=== PATIENT | male | born 2000 | race Caucasian/White ===

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

== ENCOUNTER 2023-01-22 08:23 | Emergency (ER) | payer BC, SELFPAY ==
--- NOTE | 2023-01-22 08:36 | ED.NAVMDI ---
HPI - Nausea/Vomiting/Diarrhea General Chief complaint: Nausea/Vomiting/Diarrhea Stated complaint: Wants a Doctor's Note History of Present Illness HPI Narrative: Patient presents requesting a work note. Patient states yesterday had nausea and vomiting with emesis x1. No fever no cough no shortness of breath no chest pain. Patient has no diarrhea no constipation no abdominal pain. Patient states he feels like ?a million bucks? today and just needs a note to go back to work tomorrow. Patient states he is eating and drinking normal now and all symptoms have resolved. Related Data Home Medications Medication Instructions Recorded Confirmed No Home Medications 01/22/23 01/22/23 Allergies Allergy/AdvReac Type Severity Reaction Status Date / Time Sulfa (Sulfonamide Allergy Intermediate Hives Verified 01/22/23 08:43 Antibiotics) Review of Systems Review of Systems: CONSTITUTIONAL: Denies fever, chills, or sweats. EYES: Denies visual changes, redness, or discharge. ENT: Denies rhinorrhea, congestion, sore throat, or otalgia. CARDIOVASCULAR: Denies chest pain, palpitations, or edema. RESPIRATORY: Denies cough or dyspnea. GASTROINTESTINAL: Denies abdominal pain, nausea, vomiting, or diarrhea. GENITOURINARY: Denies dysuria or hematuria. SKIN: Denies rash or itching. MUSCULOSKELETAL: Denies back pain, joint pain, or myalgia. NEUROLOGIC: Denies headache, numbness, or weakness. PSYCHIATRIC: Denies anxiety or depression. [facility] Comments At time of signature, agree with nursing past medical, surgical, social and family history. There is no relevant family history pertinent to the presenting complaint Exam Narrative: GENERAL: Well-appearing, well-nourished, and in no acute distress. HEAD: Normocephalic, atraumatic. EYES: PERRLA and EOMI. ENT: Nares clear, no rhinorrhea or epistaxis. Mucous membranes moist. NECK: Supple. CHEST: Clear to auscultation. No respiratory distress. HEART: Regular rate and rhythm. No murmur heard. Normal peripheral pulses. ABDOMEN: Soft, nontender, nondistended, normal active bowel sounds. EXTREMITIES: Normal range of motion. No edema. SKIN: Warm, dry, no rash. NEURO: No focal deficits. Alert and oriented x3. [place] Coma Scale Eye Opening: Spontaneous 4 [place] Coma Scale Motor: Obeys Commands 6 [place] Coma Scale Verbal: Oriented 5 [place] Coma Scale Total 15 Course Course Level of Care: Express Care Visit Discharge Plan Discharge Clinical Impression: Encounter to obtain excuse from work Patient Disposition: Home, Self-Care Condition: Stable Additional Instructions: Clear liquids for the next 8-10 hours, then advance to a bland diet as tolerated A bland diet can consist of--BRAT diet which is bananas, rice, applesauce, and toast Avoid fried, greasy, fatty, fried foods Avoid caffeine, nicotine, and alcohol Return to your regular diet in the next 3-4 days Medication as directed for nausea and vomiting. Sometimes ibuprofen/Aleve can cause increased stomach upset [id number] Imodium if develop diarrhea Follow-up with her PCP if continued problems or uncontrolled pain -If you have any worsening of symptoms or any other concerns please go to the ED immediately. Follow-up/Referrals: UNKNOWN,DOCTOR [Primary Care Provider] - Stand Alone Forms: Work/School Release IP
[2023-01-22 08:37] VITALS: BP 143/75; PULSE 103; RESP 16; TEMP 36.8; O2SAT 98
== END 2023-01-22 08:47 | disposition home or self-care (01) ==
PROVIDERS: Emergency Provider Nurse Practitioner Family
DX: R11.2 Nausea with vomiting, unspecified (principal)
CPT/HCPCS: 99211; G0463

== ENCOUNTER 2023-07-18 09:12 | Emergency (ER) | payer BC, SELFPAY ==
[2023-07-18 09:26] VITALS: BP 140/54; PULSE 98; RESP 18; TEMP 36.8; O2SAT 98
--- NOTE | 2023-07-18 09:35 | ED.DENTAL ---
HPI - Dental/Oral General Chief complaint: Dental/Oral Stated complaint: Pain on left side of face and left Ear Time Seen by Provider: 07/18/23 09:29 Source: patient Mode of arrival: ambulatory Limitations: no limitations History of Present Illness HPI Narrative: 23-year-old male presents with concern for pain to his left jaw near his ear. Reports he thinks it maybe is wisdom tooth. He denies runny nose, stuffy nose, drainage from the ear. Denies fever, headache, trouble swelling. Has tried Tylenol Complaint: tooth pain Related Data Allergies Allergy/AdvReac Type Severity Reaction Status Date / Time Sulfa (Sulfonamide Allergy Intermediate Hives Verified 01/22/23 08:43 Antibiotics) Review of Systems Review of Systems: CONSTITUTIONAL: Denies malaise, chills, sweats, or fever. EYES: Denies visual changes ENT: Denies rhinorrhea, congestion, sinus pain, otalgia or sore throat. Reports left lower dental pain CARDIOVASCULAR: Denies chest pain, palpitations RESPIRATORY: Denies cough or dyspnea. SKIN: Denies rash or itching. MUSCULOSKELETAL: Denies myalgia. NEUROLOGIC: Denies numbness, weakness, or headache. All systems reviewed & are unremarkable except as noted in HPI and below PMFSH Comments At time of signature, agree with nursing past medical, surgical, social and family history. There is no relevant family history pertinent to the presenting complaint Exam Narrative: GENERAL: Well-appearing, well-nourished, and in no acute distress. HEAD: Normocephalic, atraumatic. EYES: PERRLA, sclera clear ENT: Nares clear, turbinates pink, no rhinorrhea or epistaxis. Mucous membranes moist. TM pearly alan with sharp light reflex bilaterally; no tragal tenderness. Oropharynx without erythema or lesions. Tonsils not enlarged and without exudate. No missing teeth, broken teeth, visible caries. Left jaw tenderness NECK: Supple. No lymphadenopathy. CHEST: No respiratory distress. Speaks in full sentences. HEART: Regular rate and rhythm. SKIN: Warm, dry, no visible rash. NEURO: Alert and oriented x3. PSYCH: Normal mood and affect Course Course Emergency Course: Patient is aware of diagnosis, understands and agrees to treatment plan. Anticipatory guidance given. Patient agrees to follow-up as directed and is aware of reasons to seek care at the emergency department. Portions of this record may have been created with voice recognition software Level of Care: Express Care Visit Vital Signs Vital signs: Vital Signs Temperature 98.3 F 07/18/23 09:26 Pulse Rate 98 07/18/23 09:26 Respiratory Rate 18 07/18/23 09:26 Blood Pressure 140/54 L 07/18/23 09:26 Pulse Oximetry 98 07/18/23 09:26 Oxygen Delivery Room Air 07/18/23 09:26 Temperature 98.3 F 07/18/23 09:26 Pulse Rate 98 07/18/23 09:26 Respiratory Rate 18 07/18/23 09:26 Blood Pressure 140/54 L 07/18/23 09:26 Pulse Oximetry 98 07/18/23 09:26 Oxygen Delivery Room Air 07/18/23 09:26 Reviewed. MDM - Dental/Oral MDM Narrative Medical decision making narrative: Patients pain and complaint coupled with physical findings are consistant with dentalgia. There are no focal signs of space occupying lesions that are compromising to the airway; no dysphagia, odynophagia, dysphonia, or dyspnea. No uvular deviation or soft palate edema. Patient is non-toxic appearing. The floor of the mouth is soft with no signs of Singh's Angina; no induration below mandible, no neck pain. Patient is without trismus or drooling and able to swallow secretions. Patient is felt appropriate for discharge home with dental follow up. Differential Diagnosis Differential diagnosis: Likely gingival abscess, dental caries, toothache, dental abscess, fracture of tooth and aphthous ulcer Critical Care Time Critical Care Time Critical Care Time: No Discharge Plan Discharge Clinical Impression: Toothache Patient Disposition: Home, Self-Care
== END 2023-07-18 09:42 | disposition home or self-care (01) ==
PROVIDERS: Emergency Provider Nurse Practitioner
DX: K08.89 Other specified disorders of teeth and supporting structures (principal)
CPT/HCPCS: 99213; G0463

== ENCOUNTER 2024-03-10 15:39 | Emergency (ER) | payer BC, SELFPAY ==
--- NOTE | 2024-03-10 15:46 | ED.GENADULT ---
HPI - General Adult General Chief complaint: Unspecified Stated complaint: needs work note Time Seen by Provider: 03/10/24 15:40 History of Present Illness HPI narrative: 24 year old male presents the urgent care with complaints of nausea for the last 2 to 3 days. Patient states that he has not had any nausea or vomiting in the last 24 hours and is wanting to return to work. Patient believes that he just got sick off of something that he ate . Patient has been eating and drinking fine within the last 24 hours without any symptoms. Denies any diarrhea or abdominal pain. No other acute complaints. No acute distress noted. Patient aware of the plan of care. Related Data Allergies Allergy/AdvReac Type Severity Reaction Status Date / Time Sulfa (Sulfonamide Allergy Intermediate Hives Verified 01/22/23 08:43 Antibiotics) Review of Systems Review of Systems: CONSTITUTIONAL: Denies fever, chills, or sweats. EYES: Denies visual changes, redness, or discharge. ENT: Denies rhinorrhea, congestion, sore throat, or otalgia. CARDIOVASCULAR: Denies chest pain, palpitations, or edema. RESPIRATORY: Denies cough or dyspnea. GASTROINTESTINAL: Denies abdominal pain, nausea, vomiting, or diarrhea. GENITOURINARY: Denies dysuria or hematuria. SKIN: Denies rash or itching. MUSCULOSKELETAL: Denies back pain, joint pain, or myalgia. NEUROLOGIC: Denies headache, numbness, or weakness. PSYCHIATRIC: Denies anxiety or depression. PMFSH Comments At time of signature, agree with nursing past medical, surgical, social and family history. There is no relevant family history pertinent to the presenting complaint Exam Narrative: The patient is a well-developed, well-nourished in no acute distress. SKIN: Skin is warm and dry without erythema, swelling or exudate. There is good turgor. No tenting. HEAD: Atraumatic. Normocephalic. No temporal or scalp tenderness. EYES: Moist and bright. Sclera and conjunctivae normal. No discharge. PERRLA. Extraocular motions intact. Gross visual acuity intact. EARS: Pinna is normal shape and contour. Clear external auditory canals. TM pearly ramirez with good cone of light, no erythema or suppuration. Bilateral cerumen noted no gross hearing deficit. NOSE: pink, moist mucosa with good air movement. Clear rhinorrhea without nasal flaring. Septum midline. Mouth: moist mucous membranes. THROAT; mild erythema noted to posterior oropharynx with moderate postnasal drainage. Without exudate or ulceration.. Uvula midline. Normal movement of soft palate. NECK: Supple and nontender with full range of motion without discomfort. No meningeal signs. LUNGS: Equal and bilateral breath sounds without wheezes, rales or rhonchi. CHEST: The chest wall is without retractions or use of accessory muscles. HEART: Has a regular rate and rhythm without murmur, gallops, click or rub. ABDOMEN: Soft, nontender with positive active bowel sounds. No rebound tenderness. EXTREMITIES: Without cyanosis, clubbing or edema. Equal 2+ distal pulses and 2 second capillary refill noted. NEUROLOGIC: alert, active, . The patient moves all extremities with normal muscle strength. Normal muscle tone is noted. Normal coordination is noted. NO focal neurological findings noted. Course Course Level of Care: Express Care Visit Discharge Plan Discharge Clinical Impression: Encounter to obtain excuse from work Patient Disposition: Home, Self-Care Condition: Stable Additional Instructions: Follow-up with primary care provider as needed If any return of symptoms please go to ER immediately further evaluation treat Follow-up/Referrals: PHYSICIAN,HUMAN RESOURCES MANAGER MANUFACTURING [Primary Care Provider] - Stand Alone Forms: Work/School Release IP
[2024-03-10 15:51] VITALS: BP 131/76; PULSE 98; RESP 16; TEMP 36.7; O2SAT 98
== END 2024-03-10 16:00 | disposition home or self-care (01) ==
PROVIDERS: Emergency Provider Nurse Practitioner Family
DX: Z02.79 Encounter for issue of other medical certificate (principal)
CPT/HCPCS: 99211; G0463

== ENCOUNTER 2024-05-13 14:03 | Emergency (ER) | payer BC, SELFPAY ==
[2024-05-13 14:09] VITALS: BP 152/52; PULSE 108; RESP 16; TEMP 36.9; O2SAT 97
--- NOTE | 2024-05-13 14:09 | ED.URI ---
HPI - URI/Sore Throat General Chief Complaint: Upper Respiratory Infection Stated Complaint: Cough/Sore Throat Time Seen by Provider: 05/13/24 14:15 Source: patient and RN notes reviewed Mode of arrival: ambulatory Limitations: no limitations History of Present Illness HPI Narrative: 24-year-old male presents concern for returning to work after being sick on Monday. Reports had a cough and sore throat on Monday, he took Mucinex. He reports he has been feeling better since then but he did cough work Monday. He denies fever, body aches, chills, sweats. MD elicited complaint: sore throat Related Data Allergies Allergy/AdvReac Type Severity Reaction Status Date / Time Sulfa (Sulfonamide Allergy Intermediate Hives Verified 01/22/23 08:43 Antibiotics) Review of Systems Review of Systems: CONSTITUTIONAL: Denies malaise, chills, sweats, or fever. EYES: Denies visual changes, redness, or discharge. ENT: Denies rhinorrhea, congestion, sinus pain, otalgia and sore throat. CARDIOVASCULAR: Denies chest pain, palpitations, or edema. RESPIRATORY: Denies cough. Denies dyspnea. GASTROINTESTINAL: Denies abdominal pain, nausea, vomiting, diarrhea SKIN: Denies rash or itching. MUSCULOSKELETAL: Denies myalgia. NEUROLOGIC: Denies headache. All systems reviewed & are unremarkable except as noted in HPI and below PMFSH Comments At time of signature, agree with nursing past medical, surgical, social and family history. There is no relevant family history pertinent to the presenting complaint Exam Narrative: GENERAL: Well-appearing, well-nourished, and in no acute distress. HEAD: Normocephalic EYES: PERRLA, conjunctivae clear ENT: Nares clear. Mucous membranes moist. TM pearly alan with dull light reflex bilaterally; no tragal tenderness. Oropharynx not erythematous without lesions. Tonsils not enlarged and without exudate, no drooling, no hoarseness, no trismus, uvula midline. NECK: Supple. No lymphadenopathy CHEST: Clear to auscultation, breath sounds equal. No wheezing, rhonchi, rales, or stridor. No respiratory distress, speaks in full sentences. HEART: Regular rate and rhythm. No murmur heard. SKIN: Warm, dry, no rash. NEURO: Alert and oriented x3. PSYCH: Normal mood and affect Course Course Emergency Course: Patient is aware of diagnosis, understands and agrees to treatment plan. Anticipatory guidance given. Patient agrees to follow-up as directed and is aware of reasons to seek care at the emergency department. Portions of this record may have been created with voice recognition software Level of Care: Express Care Visit Vital Signs Vital signs: Reviewed. MDM - URI/Sore Throat MDM Narrative Medical decision making narrative: Differential diagnosis considered: Sanchez virus, strep pharyngitis, allergic rhinitis, upper respiratory tract infection, sinusitis, rhinosinusitis, nasopharyngitis. viral pharyngitis, otitis media, otitis externa, pneumonia, bronchitis, viral cough syndrome, viral syndrome, and influenza. Exam findings show no acute concerns or changes; patient is non-toxic appearing and is in no distress. Patient is appropriate for outpatient treatment and follow-up. Lab Data Attestation: I reviewed the patient's lab results. Critical Care Time Critical Care Time Critical Care Time: No Discharge Plan Discharge Clinical Impression: Well adult exam Patient Disposition: Home, Self-Care Condition: Stable Instructions: General Patient Instructions Additional Instructions: 1) Please follow-up with your primary care doctor in the next 1-2 days. 2) If you have any worsening of symptoms or any other urgent concerns please go to the ER. 3) Please take medications as prescribed and continue taking your home medications as usual. 4) Please read and follow information included in discharge instructions. Follow-up/Referrals: PHYSICIAN,SUPERVISOR FIBERGLASS BOAT ASSEMBLY [Primary Care Provider] - Stand Alone Forms: Work/School Release IP Time of Disposition: 14:19
== END 2024-05-13 14:24 | disposition home or self-care (01) ==
PROVIDERS: Emergency Provider Nurse Practitioner
DX: Z71.1 Person with feared health complaint in whom no diagnosis is made (principal)
CPT/HCPCS: 99211; G0463

== ENCOUNTER 2024-08-30 10:32 | Emergency (ER) | payer BC, SELFPAY ==
[2024-08-30 10:36] VITALS: BP 156/69; PULSE 109; RESP 14; TEMP 36.6; O2SAT 97
--- NOTE | 2024-08-30 10:49 | ED_ITS ---
HPI - Nausea/Vomiting/Diarrhea General Chief complaint: Nausea/Vomiting/Diarrhea Stated complaint: nausea/aches Time Seen by Provider: 08/30/24 11:16 Source: patient and RN notes reviewed Mode of arrival: ambulatory Limitations: no limitations History of Present Illness HPI Narrative: 24-year-old male presents with concern for nausea, vomiting, diarrhea that started Monday and ended yesterday. Reports he has missed work. He needs a work note. He reports he started having some runny nose today. Denies fever, body aches, chills, sweats. MD elicited complaint: nausea, vomiting and diarrhea Related Data Home Medications ?Medication ?Instructions ?Recorded ?Confirmed ?Last Taken ?Type No Home Medications 08/30/24 08/30/24 Unknown History Allergies Allergy/AdvReac Type Severity Reaction Status Date / Time Sulfa (Sulfonamide Allergy Intermediate Hives Verified 08/30/24 10:46 Antibiotics) Review of Systems Review of Systems: CONSTITUTIONAL: Denies malaise, chills, sweats, or fever. ENT: Reports rhinorrhea. Denies congestion, sinus pain, otalgia or sore throat. CARDIOVASCULAR: Denies chest pain, palpitations, or edema. RESPIRATORY: Denies cough or dyspnea. GASTROINTESTINAL: Denies abdominal pain, bloody, or mucous stools. Reports nausea, vomiting, diarrhea yesterday and the day before GENITOURINARY: Denies dysuria or hematuria. MUSCULOSKELETAL: Denies myalgia. NEUROLOGIC: Denies headache. All systems reviewed & are unremarkable except as noted in HPI and below PMFSH Comments At time of signature, agree with nursing past medical, surgical, social and family history. There is no relevant family history pertinent to the presenting complaint Exam Narrative: GENERAL: Well-appearing, well-nourished, and in no acute distress. HEAD: Normocephalic, atraumatic. EYES: PERRLA, conjunctivae clear, and EOMI. ENT: Nares clear. Mucous membranes moist. Oropharynx without edema, erythema, or lesions. Tonsils not enlarged and without exudate. NECK: Supple. No lymphadenopathy CHEST: Speaks in full sentences. No respiratory distress. HEART: Regular rate and rhythm. ABDOMEN: Soft, obese, nondistended, nontender. No guarding, rebound tenderness, or rigidity. No pulsatile masses. Bowel sounds present in all four quadrants. SKIN: Warm, dry, no rash. NEURO: Alert and oriented x3. PSYCH: Normal mood and affect Course Course Emergency Course: Patient is aware of diagnosis, understands and agrees to treatment plan. Anticipatory guidance given. Patient agrees to follow-up as directed and is a hodges of reasons to seek care at the emergency department. Portions of this record may have been created with voice recognition software Level of Care: Express Care Visit Vital Signs Vital signs: Vital Signs Temperature 98 F 08/30/24 10:36 Pulse Rate 109 H 08/30/24 10:36 Respiratory Rate 14 08/30/24 10:36 Blood Pressure 156/69 H 08/30/24 10:36 Pulse Oximetry 97 08/30/24 10:36 Oxygen Delivery Room Air 08/30/24 10:36 Temperature 98 F 08/30/24 10:36 Pulse Rate 109 H 08/30/24 10:36 Respiratory Rate 08/30/24 10:36 Blood Pressure 156/69 H 08/30/24 10:36 Pulse Oximetry 97 08/30/24 10:36 Oxygen Delivery Room Air 08/30/24 10:36 Reviewed. MDM - Nausea/Vomiting/Diarrhea MDM Narrative Medical decision making narrative: No evidence of pancreatitis, AAA, cholecystitis, choledocholithiasis, cholangitis, mesenteric ischemia, small bowel obstruction, diverticulitis, colitis, appendicitis, or pelvic etiology such as ovarian/testicular torsion, TOA, or ectopic . Patient has no history of peptic ulcer, H. pylori, chronic aspirin NSAID or corticosteroid use, chronic alcohol use, no history of inflammatory bowel disease, no history of active abdominal infection or malignancy. Patient has no history of hernia or intra-abdominal surgeries, patient denies absence of flatus, constipation, melena, hematemesis. Patient denies post-prandial pain. No pain-out of proportion. Exam findings show no acute concerns or changes; patient is non-toxic appearing and is in no distress. Patient is appropriate for outpatient treatment and follow-up. Critical Care Time Critical Care Time Critical Care Time: No Discharge Plan Discharge Clinical Impression: Nausea vomiting and diarrhea Patient Disposition: Home, Self-Care Condition: Stable Instructions: Acute Nausea and Vomiting (ED) Additional Instructions: Stay hydrated. Take small sips of fluid containing electrolytes frequently. You should go to the hospital if you experience return of persistent nausea and vomiting that does not resolve and does not allow you to tolerate any food or fluids, persistent fevers for greater than 2-3 more days, increasing abdominal pain that persists despite medications, persistent diarrhea, dizziness, syncope (fainting), or for any other concerns. Patient Language: Ukrainian Prescriptions: No Action No Home Medications Follow-up/Referrals: PHYSICIAN,EPIC PRELUDE ANALYST [Primary Care Provider] - Stand Alone Forms: Work/School Release IP Time of Disposition: 11:20
--- OUTSIDE RECORDS SUMMARY | 2024-08-30 11:16 | XMS_ITS | Referral Summary ---
Author Organization [facility] [employer] Address [address] [place] [address] Care Team Providers Care Master Tax Advisor Name Role Phone Cory Cabrera MD Primary Care Provider [phone] Source Comments [facility] [employer],non-owned Affiliates and Associated Physician Practices is amultiple site organization consisting of ambulatory clinics and hospital sitesin [place], [place], [place] and [place]. This disclosure is being madepursuant to the Care Everywhere program and may not contain all information available regarding this patient. Last updated 18.[facility] [employer] Allergies Active Allergy Reactions Criticality Noted Date Comments Sulfa Drugs Swelling 11/02/2009 Medications Be aware that medications may not be up to date on this document. Always verify current medications with the patient. No known medications Social History Tobacco Use Types Packs/Day Years Used Date Smoking Tobacco: Passive Smo ke Exposure - Never Smoker Sex and Gender Information Value Date Recorded Sex Assigned at Not on file Gender Identity Not on file Sexual Orientation Not on file Last Filed Vital Signs Vital Sign Reading Time Taken Comments Blood Pressure 122/80 01/24/2019 2:22 PM CDT Pulse 101 01/24/2019 2:22 PM CDT Temperature 36.8 C (98.2 F) 01/24/2019 2:22 PM CDT Respiratory Rate 18 01/24/2019 2:22 PM CDT Oxygen Saturation 97% 06/07/2016 4:14 PM PULLMAN CONDUCTOR Inhaled Oxygen Concentration - - Weight 127 kg (280 lb) 01/24/2019 2:22 PM CDT Height 186 cm (6' 1.23 ) 01/24/2019 2:22 PM CDT Body Mass Index 36.71 01/24/2019 2:22 PM CDT Plan of Treatment Not on file Care Teams Master Tax Advisor Relationship Specialty Start Date End Date Cory Cabrera MD [address] [place] [address] PCP - General 07/07/09
--- OUTSIDE RECORDS SUMMARY | 2024-08-30 11:16 | XMS_ITS | Clinical Summary ---
Author Organization [facility] Address [address] [place] [address] Phone Care Team Providers Care Deflector Operator Name Role Phone Provider, None Primary Care Provider Unavailabl e Allergies Active Allergy Reactions Criticality Noted Date Comments Sulfa Antibiotics Unknown 06/30/2017 Medications Adapalene-Benzoy l Peroxide (EPIDUO) 0.1-2.5 % GelIndications:A cne vulgaris ApplyQD to affected area until resolved. 1 Tube 2 8 Active Doxycycline Monohydrate 100 MG Capsule Take 1 Cap by mouth daily. 90 Cap 8 Active Active Problems Problem Noted Date Diagnosed Date Acne vulgaris 06/30/2017 Obesity (BMI 35.0-39.9 without comorbidity) 06/19 Immunizations Immunization Administration Dates Next Due DTAP VACCINE 03/14/2008, 3,2002,07/15,2002 Hepatitis A Vaccine, Pediatric/adolescent, 2 Dose Schedule 03/02/2016 Hepatitis A, Pediatric, Unsp ecified Formulation 03/14/2008 Hepatitis B Vaccine, Pediatric/adolescent 2002,2002 Hepatitis B Vaccine,unspecif ied Formulation 2002 Hib Vaccine,unspecified Formulation 02/2003,2002,2002,05/08 Human Papillomavirus (HPV) 9 -valent Vaccine 05/17/2016,03/02/2016 Inactivated Polio Vaccine 03/14/2008,02/2003,2002,07/15,2002 Influenza Vaccine, Quadrivalent, PF 03/02/2016 Influenza Vaccine,unspecifie d Formulation 05/27/2003 MMR Vaccine 03/14/2008,03/11/2003 Meningococcal MCV4O 04/07/2020 Meningococcal Vaccine 03/02/2016 Pneumococcal Vaccine Peds - 7 Valent 02/2003,2002,2002,05/08 TDAP Vaccine 03/02/2016 Varicella Vaccine Live 03/14/2008,03/11/2003 Family History Medical History Relation Name Comments Diabetes Father Thyroid Disease Mother Relation Name Status Comments Father Alive Mother Alive Social History Tobacco Use Types Packs/Day Years Used Date Smoking Tobacco: Never Smokeless Tobacco: Never Alcohol Use Standard Drinks/Week Comments No 0 (1 standard drink = 0.6 oz pur e alcohol) Sex and Gender Information Value Date Recorded Sex Assigned at Not on file 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 Gender Identity Not on file Sexual Orientation Not on file Last Filed Vital Signs Vital Sign Reading Time Taken Comments Blood Pressure 126/68 02/15/2018 8:11 AM CDT Pulse 74 02/15/2018 8:11 AM CDT Temperature 36.6 C (97.8 F) 02/15/2018 8:11 AM CDT Respiratory Rate 18 02/15/2018 8:11 AM CDT Oxygen Saturation 98% 02/15/2018 8:11 AM CDT Inhaled Oxygen Concentration - - Weight 124.6 kg (274 lb 11.2 oz) 02/15/2018 8:11 AM CDT Height 180.3 cm (5' 11 ) 02/15/2018 8:11 AM CDT Body Mass Index 38.31 02/15/2018 8:11 AM CDT Plan of Treatment Health Maintenance Due Date Last Done Comments Hepatitis C Virus (HCV) Screening 2002 Human Papillomavirus (HPV) Immunization (3 - Male 2-dose series) 08/30/2016 05/17/2016, 03/02/2016 Meningococcal B Immunization (1 of 2 - Standard) 2018 Influenza Immunization (#1) 2024 03/02/2016, 1 2002 SARS-COV-2 Immunization (2 - season) 2024 07/15/2021 DTaP/Tdap/Td Immunization (7 - Td or Tdap) 03/02/2026 03/02/2016, 03/14/2008, 05/27/2003, Additional history exists Respiratory Syncytial Virus (RSV) Immunization (Adult) (1 - 1-dose 75+ series) 2077 Hepatitis B Immunization Completed 003, 2002, 2002 Pneumococcal Immunization Combined Aged Out 05/27/2003, 2002, 2002, Additional history exists No longer eligible based on patient's age to complete this topic Measles Mumps Rubella (MMR) Immunization Discontinued 03/14/2008, 03/11/2003 Polio (IPV) Immunization Discontinued 008, 05/27/2003, 2002, Additional history exists Varicella Immunization Discontinued 03/14/2008, 2002 Hepatitis A Immunization Discontinued 03/02/2016, 02/18 Meningococcal Immunization (ACWY) Completed 04/07/2020, 03/02/2016 Rotavirus Immunization Aged Out No lo nger eligible based on patient's age to complete this topic Care Teams Deflector Operator Relationship Specialty Start Date End Date Provider, None [place] PCP - General 04/07/21
--- OUTSIDE RECORDS SUMMARY | 2024-08-30 11:16 | XMS_ITS | Clinical Summary ---
Author Organization [facility] [employer] Address [facility] [place] [address] Care Team Providers Care Record Clerk Name Role Phone Cory Cabrera MD Primary Care Provider [phone] Source Comments [facility] [employer],non-owned Affiliates and Associated Physician Practices is amultiple site organization consisting of ambulatory clinics and hospital sitesin [place], [place], [place] and [place]. This disclosure is being madepursuant to the Care Everywhere program and may not contain all information available regarding this patient. Last updated 18.[facility] [employer] Allergies Active Allergy Reactions Criticality Noted Date Comments Sulfa Drugs Swelling 11/02/2009 Medications Be aware that medications may not be up to date on this document. Always verify current medications with the patient. 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 [employer]OPE[employer]ANT PLANT Inhaled Oxygen Concentration - - Weight 127 kg (280 lb) 01/24/2019 2:22 PM CDT Height 186 cm (6' 1.23 ) 01/24/2019 2:22 PM CDT Body Mass Index 36.71 01/24/2019 2:22 PM CDT Plan of Treatment Health Maintenance Due Date Last Done Comments HIV SCREENING 2017 HPV VACCINE (1 - Male 3-dose series) 2017 MENINGOCOCCAL (Group B) VACC INE SHARED DECISION-MAKING (1 of 2 - Standard) 2018 HEPATITIS C SCREENING 03/02/2020 DTAP/TDAP/TD VACCINES (1 - Tdap) 2021 HEPATITIS B VACCINE (1 of 3 - 19+ 3-dose series) 2021 COVID-19 VACCINE (1 - 2023-2 5 season) 2024 INFLUENZA VACCINE (#1) 2024 DEPRESSION SCREENING 06/19/2024 ZOSTER VACCINE (1 of 2) 2052 HIB VACCINE Aged Out No longer eligi ble based on patient's age to complete this topic MENINGOCOCCAL GROUPS A/C/Y/W VACCINE Aged Out No longer eligible b ased on patient's age to complete this topic PNEUMOCOCCAL VACCINE Aged Out No long er eligible based on patient's age to complete this topic Care Teams Record Clerk Relationship Specialty Start Date End Date Cory Cabrera MD [address] [place] [address] PCP - General 07/07/09
--- OUTSIDE RECORDS SUMMARY | 2024-08-30 11:16 | XMS_ITS | Encounter Summary ---
Author Organization [facility] Address [address] [place] [address] Phone Care Team Providers Care Dry Janitor Name Role Phone Yelena Degroot MD Primary Care Provider Provider, None Primary Care Provider Unavailabl e Encounter Details Date Type Department Care Team (Late st Contact Info) Description 02/08/2021 Lab Requisition [facility] [address] [place] [address] Luciana Velasco, SUPPORT ASSISTANT, HOT METAL MIXER OPERATOR [address] [place] [address] Encounter for screening for COVID-19 Social History Tobacco Use Types Packs/Day Years Used Date Smoking Tobacco: Never Smokeless Tobacco: Never Alcohol Use Standard Drinks/Week Comments No 0 (1 standard drink = 0.6 oz pur e alcohol) Sex and Gender Information Value Date Recorded Sex Assigned at Not on file Legal Sex Male 3:56 PM CIVIL 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 Gender Identity Not on file Sexual Orientation Not on file documented as of this encounter Plan of Treatment Not on file documented as of this encounter Procedures Procedure Name Priority Date/Time Associated Diagnosis Comments SARS-COV-2 BY MOLECULAR Routine 02/08/2021 8:00 AM CDT Encounter for screening for COVID-19 documented in this encounter Results * SARS-COV-2 BY MOLECULAR (02/08/2021 8:00 AM CDT) SARSCOV2 NOT DETECTED (Referen ce Range for this test is Not Detected ) [facility] THERMOF[facility]ER FAST DX 02/09/2021 8:47 AM CDT [facility] Comment:This test was perfor med by a RT-PCR method. Other Non-Phlebotomy Collection / Unknown 02/08/2021 8:00 AM CDT 02/08/2021 12:51 PM CDT Narrative [facility] - 02/09/2021 8:47 AM CDT Authorized Fact Sheets about this test for providers and patients are available at: https://www.fda.gov/medical-devices/zkfwsqsmf-yafztmmznj-vbnqdyf-devices/emergen -us e-authorizations us Luciana Velasco SUPPORT ASSISTANT, HOT METAL MIXER OPERATOR MICROBIOLOGY - GENE RAL ORDERABLES Final Result [facility] [address] [place] [address], documented in this encounter Visit Diagnoses Diagnosis Encounter for screening for COVID-19 documented in this encounter Additional Health Concerns Infection Onset Date Last Indicated Resolved Time COVID - 19 02/08/2021 02/08/2021 02/28/2021 12:1 6 AM CDT Assessment Noted Time PHQ-9 Depression Total Score: 0 06/30/19 12:00 PM CIVIL ENGINEERING 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 documented as of this encounter Care Teams Dry Janitor Relationship Specialty Start Date End Date Yelena Degroot MD PCP - General Family Medicine 06/30/17 04/06/21 Provider, None [place] PCP - General 04/07/21 documented as of this encounter
--- OUTSIDE RECORDS SUMMARY | 2024-08-30 11:16 | XMS_ITS | Patient Health Summary ---
Author Organization [facility] [employer] Address [address] [place] [address] Care Team Providers Care Gridcap Machine Operator Name Role Phone Aden Cabrera MD Primary Care Provider [phone] Note from [facility],non-owned Affiliates and Associated Physician Practices is amultiple site organization consisting of ambulatory clinics and hospital sitesin [place], [place], [place] and [place]. This disclosure is being madepursuant to the Care Everywhere program and may not contain all information available regarding this patient. Last updated 18.[facility] [employer] Allergies * Sulfa Drugs(Swelling) Medications Be aware that medications may not [...] CDT Oxygen Saturation 97% 06/07/2016 4:14 PM CUT AND COVER LINE WORKER Inhaled Oxygen Concentration - - Weight 127 kg (280 lb) 01/24/2019 2:22 PM CDT Height 186 cm (6' 1.23 ) 01/24/2019 2:22 PM CDT Body Mass Index 36.71 01/24/2019 2:22 PM CDT Procedures * STREP A SCREEN - POINT OF CARE (AMB) L(Performed 06/07/2016) Performed for Acute nasopharyngitis * POLYSOMNOGRAPHY 4 OR MORE PARAMETERS(Performed 08/04/2009) * GROSS EXAM PATHOLOGY(Performed 12/07/2005) Results * STREP A SCREEN (06/07/2016) Strep A Rapid POCT Negative Negative Strep A Internal Control Present Lot # [id number] Expiration Date [id number] Throat ENTIRE THROAT (SURFACE REGION OF NECK) / Unknown 06/07/2016 Karlie Gurdeep VIRKN-VEHICLE CHECK IN CLERK LAB - POINT OF CARE ORDERABLES * POLYSOMNOGRAPHY (08/04/2009 12:00 AM CUT AND COVER LINE WORKER) 08/04/2009 Narrative Procedure Note Tessa Lawrence MD - [facility]04/2009 [facility] Polysomnogram Ordered by:Dr. Renard Gonzales Wt(lb):109.0 lbs Ht(in):4' 4 CONDITIONS OF RECORDING:Nocturnal polysomnography was performed on this9 year old child with history of chronic ear infections, irregularbreathing patterns, snoring, daytime sleepiness, impaired schoolperformance despite adenotonsillectomy in 2005. The following wererecorded: right and left electrooculogram, frontal, central and occipitalelectroencephalogram, chin electrogram, right and left anterior tibialelectrogram, nasal and oral airflow, snore sensor, thoracic and abdominalrespiratory effort by respiratory inductance plethysmography belts, oxygensaturation, end tidal carbon dioxide, 2 lead electrocardiogram and pulserate overnight between 7:39:00 PM and 06:09:21 AM hours and analyzedmanually. Staging and scoring as defined by the [place] [employer] Manual for Scoring Sleep, 2007. SUMMARY OF SLEEP PARAMETERS Lights Out Time: 09:26:05 PM Lights On Time: 06:07:21 AM Total Recording Time (TIB):521.3 Minutes8.69 Hours Total Sleep Time (TST):445.0 Minutes7.42 Hours Latency to Sleep Onset: 7.9 Latency to Stage REM (from sleep onset): 247.5 Sleep Efficiency: 85.4% SLEEP SUMMARY Minutes%TST Stage N124.55.5% Stage N2159.035.7% Stage N3208.046.7% Stage REM53.512.0% Wake After Sleep Onset (WASO): 68.5 minutes SLEEP CONTINUITY Number of Arousals: 68 Arousal Index: 9.2 RESPIRATORY SUMMARY Index/Hr# of Events w Desat. Obstructive Apnea -- Central Apnea 0.13 Mixed Apnea -- Hypopnea 2.09 Total A + H 2.212 RESPIRATORY EVENTS BY STAGE TOTALREMNON-REM Number Index Number Index NumberIndex [id number] RESPIRATORY EVENTS BY POSITION DURING SLEEP (minutes) SupineProneLeftRight Ntj749.5-89.082.5 AHI3.1-0.70.7 OXIMETRY ANALYSIS Baseline O2%:96.5% SaO2 Lowest SaO2%:89.0% SaO2 Lowest SaO2 associated with Obstructive Apnea w Desat93.0% Lowest SaO2 associated with Central Apnea w Desat89.0% Lowest SaO2 associated with Hypopnea w Desat94.0% Number of desaturations:12 A desaturation is a 3% drop from baseline SaO2 SaO2 FRACTIONAL TIME BREAKDOWNS EXCLUDING ARTIFACT in TST 90-100% SaO2 for 100.0% total sleep time 92-100% SaO2 for 100.0% total sleep time END TIDAL CO2 ANALYSIS 50-60 mmHg for 0.5% total sleep time 60-100 mmHg for 0 % total sleep time Occurrence of hypoventilation: N Occurrence of periodic breathing: N Occurrence of William Guevara breathing: N LEG MOVEMENTS Movement TypesTotal # Index Periodic (Total) 00.0 Periodic w/arousal 00.0 CARDIAC ANALYSIS Mean heart rate: 102.2 beats per minute Minimum heart rate: 53.0 beats per minute Maximum heart rate: 141.0 beats per minute Arrhythmias: N SUMMARY A H IndexMin SaO2 2.289.0% End-tidal CO2 analysis: 33-51mm/Hg Tone Artist Apprentice's Comments: Child did well with a full face mask during theawake CPAP pretrial. Noisy breathing with whistling sound throughoutnight. The parent recorded on the post-sleep questionnaire the patientslept about the same as usual. IMPRESSION: This study was ordered as a split night sleep study, but thechild did not meet criteria (low AHI by 3am). This polysomnogram (s/jorgetonsillectomy 2005) shows obstructive sleep apnea in a child, worsein wake-sleep transition. RECOMMENDATIONS: Per ENT. If child still is symptomatic after upcomingsurgery, please send to sleep clinic for discussion on CPAP therapy oralternative treatments for JEANETH. Dictated By: TESSA LAWRENCE MD Electronically Signed 08/13/2009 18:06:02 CUT AND COVER LINE WORKER SP/lp JOB ID: [id number] cc: ADEN CABRERA MD Tessa Lawrence MD SLEEP CENTER ORDERAB LES * GROSS EXAM PATHOLOGY (12/07/2005 12:10 PM CDT) Result CASE NUMBER [id number] [facility] PATH REPORT Comment: ORDERING PHYSICIAN SUSU RED SPECIMEN TYPE Tonsils CLINICAL HISTORY The patient is a 5-year-old boy with obstructive sleep apnea and adenotonsillar hypertrophy. GROSS DESCRIPTION The specimen labeled with the patient's name and tonsils is received fresh for gross examination only and consists of two egg-shaped, pink- weeks tonsils measuring 3.0 x 1.5 x 1.5 cm and 2.5 x 2.0 x 1.0 cm weighing approximately 8.0 gms combined. On cut surface the tonsils have a cerebriform yellow-weeks appearance. No sections are taken. (CT/lw) GROSS DIAGNOSIS GROSS DIAGNOSIS TONSILS. This case has been personally reviewed and interpreted by the attending (teaching) pathologist. Title I Assistant Sukhjinder Hansen RESIDENT IN PATHOLOG Fidelia Hu M.D. PATHOLOGIST Mikey Espinal M.D. ELECTRONICALLY EARL Mikey Espinal MISCELLANEOUS SAMPLES / Unknown 12/07/2005 12:10 PM CDT 12/07/2005 12:10 PM CDT Historical Provider LAB - PATHOLOGY/C YTOLOGY ORDERABLES [facility] PATH REPORT Care Teams Gridcap Machine Operator Relationship Specialty Start Date End Date Aden Cabrera MD [address] [place] [address] PCP - General 07/07/09
== END 2024-08-30 11:22 | disposition home or self-care (01) ==
PROVIDERS: Emergency Provider Nurse Practitioner
DX: R11.2 Nausea with vomiting, unspecified (principal); R19.7 Diarrhea, unspecified
CPT/HCPCS: 99211; G0463

== ENCOUNTER 2025-04-07 11:31 | Emergency (ER) | payer BC, SELFPAY ==
[2025-04-07 11:48] VITALS: BP 152/83; PULSE 105; RESP 20; TEMP 37; O2SAT 96
[2025-04-07 12:05] LABS: EDSTREPNEGPOS1 Negative (Negative)
--- NOTE | 2025-04-07 12:21 | ED_ITS ---
HPI - URI/Sore Throat General Chief Complaint: Upper Respiratory Infection Stated Complaint: Sore Throat Time Seen by Provider: 04/07/25 12:00 Source: patient and RN notes reviewed Mode of arrival: ambulatory Limitations: no limitations History of Present Illness HPI Narrative: 25-year-old male patient presents Express Care complaining of cough, congestion, ear fullness, sore throat for approximately 3 days. Patient denies any other upper respiratory symptoms, fevers, body aches, chest pain, difficulty breathing, shortness of breath, abdominal pain, nausea, vomiting, diarrhea, or any other symptoms. Patient took some Mucinex at relief. Patient denies any medical problems. Related Data Home Medications ?Medication ?Instructions ?Recorded ?Confirmed ?Last Taken ?Type No Home Medications 08/30/24 04/07/25 U nknown History Allergies Allergy/AdvReac Type Severity Reaction Status Date / Time Sulfa (Sulfonamide Allergy Intermediate Hives Verified 04/07/25 11:54 Antibiotics) Review of Systems Review of Systems: CONSTITUTIONAL: Denies fever, chills, body aches, or sweats. EYES: Denies visual changes, redness, or discharge. ENT: Positive for congestion, sore throat, ear fullness. Negative for rhinorrhea or otalgia. CARDIOVASCULAR: Denies chest pain, palpitations, or edema. RESPIRATORY: Positive for cough. Negative for dyspnea or wheezing. GASTROINTESTINAL: Denies abdominal pain, nausea, vomiting, or diarrhea. GENITOURINARY: Denies dysuria or hematuria. SKIN: Denies rash or itching. MUSCULOSKELETAL: Denies back pain, joint pain, or myalgia. NEUROLOGIC: Denies headache, numbness, or weakness. PSYCHIATRIC: Denies anxiety or depression. All other systems reviewed are negative, except as documented in HPI. PMFSH Comments At the time of my signature, I reviewed and agree with the nursing past medical, surgical, social, and family history. There is no relevant family history pertinent to the patient complaint. Exam Narrative: GENERAL: This is a well-nourished, well-developed adult, in no apparent distress. They are non ill-appearing, nontoxic appearing. HEAD: normocephalic, atraumatic. EYES: Sclera clear/white. Vision is grossly intact. Conjunctiva normal bilaterally. Extraocular movements intact. EARS: External ears normal, auditory canals clear and without drainage, TMs without erythema or perforation. Hearing grossly intact. NOSE: External nose normal with no obvious nasal discharge, nasal turbinates erythematous, no rhinorrhea. THROAT: Mucous membranes moist, posterior pharynx erythematous without exudate. Uvula is midline. Postnasal drip present. NECK: Neck supple, non-tender without lymphadenopathy, masses or thyromegaly. CARDIOVASCULAR: Regular rate and rhythm without murmurs, gallops, or rubs. RESPIRATORY: Clear to auscultation. Breath sounds equal bilaterally. No wheezes, rales, or rhonchi. SKIN: warm, Dry, intact with no suspicious lesions or rash, good texture and turgor. NEURO: awake, alert, and oriented to person, place and time. There were no obvious focal neurologic abnormalities. EXTREMITIES: No joint tenderness, effusion, or edema noted. BACK: Nontender without deformity. Course Course Emergency Course: Portions of this record may have been created with voice recognition software Level of Care: Express Care Visit Vital Signs Vital signs: Vital Signs Temperature 98.6 F 04/07/25 11:48 Pulse Rate 105 H 04/07/25 11:48 Respiratory Rate 20 04/07/25 11:48 Blood Pressure 152/83 H 04/07/25 11:48 Pulse Oximetry 96 04/07/25 11:48 Oxygen Delivery Room Air 04/07/25 11:48 Temperature 98.6 F 04/07/25 11:48 Pulse Rate 105 H 04/07/25 11:48 Respiratory Rate 20 04/07/25 11:48 Blood Pressure 152/83 H 04/07/25 11:48 Pulse Oximetry 96 04/07/25 11:48 Oxygen Delivery Room Air 04/07/25 11:48 MDM - URI/Sore Throat MDM Narrative Medical decision making narrative: Rapid strep negative. A throat culture is pending. Symptoms likely viral upper respiratory infection. Offered flu and COVID swabbing and patient declined. Discussed physical exam findings. Advised supportive measures and signs/symptoms to go to the ER. Pt is appropriate for outpt treatment and f/u. Differential Diagnosis Differential diagnosis: Likely upper respiratory infection, otitis media, sinusitis, viral infection and pharyngitis Lab Data Attestation: I reviewed the patient's lab results. Labs: Lab Results 04/07/25 Range/Units 11:52 POC Grp A Strep Screen Negative (Negative) Discharge Plan Discharge Clinical Impression: Upper respiratory infection Qualifiers: URI type: unspecified viral URI Qualified Code(s): J06.9 - Acute upper respiratory infection, unspecified Patient Disposition: Home Condition: Stable Instructions: Antibiotic Form, Upper Respiratory Infection (ED) Additional Instructions: Your rapid strep swab was negative today at [facility]. You will be notified in a few days if the culture comes back positive for strep, and appropriate antibiotics will be called in for you at that time. Your symptoms are likely due to a viral illness, which is not treated with antibiotics. Viral symptoms can be present for up to 10-14 days. Take Tylenol ibuprofen as needed for fever or pain. Follow instructions on the bottle. If you take DayQuil or NyQuil do not take any additional Tylenol as it already contains Tylenol in it. You may use Afrin 2 sprays each nostril twice a day for maximum of 3 days for congestion. If you use Afrin more than 3 days in a row it may cause rebound congestion. Rest and stay hydrated. Follow up with your PCP in 3-5 days if symptoms are not improving. Go to the ER immediately if you develop difficulty breathing or swallowing Patient Language: East Timorese Prescriptions: No Action No Home Medications Follow-up/Referrals: PHYSICIAN,PICK UP OPERATOR [Primary Care Provider, Internal Medicine] Time of Disposition: 12:15
== END 2025-04-07 12:23 | disposition home or self-care (01) ==
DX: J06.9 Acute upper respiratory infection, unspecified (principal)
CPT/HCPCS: 87081; 87880; 99213; G0463

== ENCOUNTER 2025-04-28 09:21 | Emergency (ER) | payer BC, SELFPAY ==
[2025-04-28 09:40] VITALS: BP 126/73; PULSE 101; RESP 20; TEMP 36.9; O2SAT 97
--- OUTSIDE RECORDS SUMMARY | 2025-04-28 09:53 | XMS_ITS | Clinical Summary ---
Author Organization [facility] Address [address] [place] [address] Phone Care Team Providers Care Communication Arts Lecturer Name Role Phone Provider, None Primary Care [...] on file Legal Sex Male 3:56 PM DIRECTOR OF RESEARCH AND DEVELOPMENT Gender Identity Not on file Sexual Orientation [...] 8:11 AM CDT Height 180.3 cm (5' 11) 02/15/2018 8:11 AM CDT Body Mass Index 38.31 02/15/2018 8:11 AM CDT Plan of Treatment Health Maintenance Due Date Last Done Comments Hepatitis C Virus (HCV) Screening 2002 Human Papillomavirus (HPV) Immunization (3 - Male 2-dose series) 08/30/2016 05/17/2016, 03/02/2016 Meningococcal B Immunization (1 of 2 - Standard) 2018 Influenza Immunization (#1) 2025 03/02/2016, 1 2002 SARS-COV-2 Immunization (2 - season) 2025 07/15/2021 DTaP/Tdap/Td Immunization (7 - Td or [...] age to complete this topic Care Teams Communication Arts Lecturer Relationship Specialty Start Date End Date Provider, None [place] PCP - General 04/07/21
--- OUTSIDE RECORDS SUMMARY | 2025-04-28 09:53 | XMS_ITS | Encounter Summary ---
Author Organization [facility] Address [address] [place] [address] Phone Care Team Providers Care Talent Advisor Name Role Phone Yelena Degroot MD Primary Care Provider Provider, None Primary Care Provider Unavailabl e Encounter Details Date Type Department Care Team (Late st Contact Info) Description 02/08/2021 Lab Requisition [facility] [address] [place] [address] Luciana Velasco, BUGGY RUNNER, ASTROBIOLOGIST [address] [place] [address] Encounter for screening for COVID-19 Social History Tobacco Use Types Packs/Day Years Used Date Smoking Tobacco: Never Smokeless Tobacco: Never Alcohol Use Standard Drinks/Week Comments No 0 (1 standard drink = 0.6 oz pur e alcohol) Sex and Gender Information Value Date Recorded Sex Assigned at Not on file Legal Sex Male 3:56 PM MANAGER SPORTS Gender Identity Not on file Sexual Orientation [...] for this test is Not Detected ) [facility] THERMOFISHER FAST DX 02/09/2021 8:47 AM CDT [facility] Comment:This test was perfor med by a RT-PCR method. Other Non-Phlebotomy Collection / Unknown 02/08/2021 8:00 AM CDT 02/08/2021 12:51 PM CDT Narrative [facility] - 02/09/2021 8:47 AM CDT Authorized Fact Sheets about this test for providers and patients are available at: https://www.fda.gov/medical-devices/bcxbkvefs-cnddqbcmeu-sqbqiqu-devices/emergen -us e-authorizations us Luciana Velasco BUGGY RUNNER, ASTROBIOLOGIST MICROBIOLOGY - GENE RAL ORDERABLES Final Result [facility] [address] [place] [address], documented in this encounter Visit Diagnoses Diagnosis Encounter for screening for COVID-19 documented in this encounter Additional Health Concerns Infection Onset Date Last Indicated Resolved Time COVID - 19 02/08/2021 02/08/2021 02/28/2021 12:1 6 AM CDT Assessment Noted Time PHQ-9 Depression Total Score: 0 06/30/19 12:00 PM MANAGER SPORTS documented as of this encounter Care Teams Talent Advisor Relationship Specialty Start Date End Date Yelena Degroot MD PCP - General Family Medicine 06/30/17 04/06/21 Provider, None [place] PCP - General 04/07/21 documented as of this encounter
--- OUTSIDE RECORDS SUMMARY | 2025-04-28 09:53 | XMS_ITS | Clinical Summary ---
Author Organization [facility] Address [address] [place] [address] Care Team Providers Care Guard Chief Name Role Phone Cory Cabrera MD Primary Care Provider [phone] Source Comments [facility],non-owned Affiliates and Associated Physician Practices is amultiple site organization consisting of ambulatory clinics and hospital sitesin [place], [place]. This disclosure is being madepursuant to the Care Everywhere program and may not contain all information available regarding this patient. Last updated 18.[facility] Allergies Active Allergy Reactions Criticality Noted Date Comments Sulfa Drugs Swelling 11/02/2009 Medications * Be aware that medications may not be up to date on this document. Alwaysverify current medications with the patient. No known [...] at Not on file Legal Sex Male 5:45 AM CROWNING INSPECTOR Gender Identity Not on file Sexual Orientation Not on file Last Filed Vital Signs Vital Sign Reading Time Taken Comments Blood Pressure 122/80 01/24/2019 2:22 PM CDT Pulse 101 01/24/2019 2:22 PM CDT Temperature 36.8 C (98.2 F) 01/24/2019 2:22 PM CDT Respiratory Rate 18 01/24/2019 2:22 PM CDT Oxygen Saturation 97% 06/07/2016 4:14 PM CROWNING INSPECTOR Inhaled Oxygen Concentration - - Weight 127 kg (280 lb) 01/24/2019 2:22 PM CDT Height 186 cm (6' 1.23) 01/24/2019 2:22 PM CDT Body Mass Index [...] of 3 - 19+ 3-dose series) 2021 DEPRESSION SCREENING 06/19/2024 COVID-19 VACCINE (1 - 2023-2 5 season) 2025 INFLUENZA VACCINE (#1) 2025 ZOSTER VACCINE (1 of 2) 2052 HIB VACCINE Aged Out No longer eligi ble based on patient's age to complete this topic MENINGOCOCCAL GROUPS A/C/Y/W VACCINE Aged Out No longer eligible b ased on patient's age to complete this topic PNEUMOCOCCAL VACCINE Aged Out No long er eligible based on patient's age to complete this topic Insurance [facility] Care Teams Guard Chief Relationship Specialty Start Date End Date Cory Cabrera MD [address] [id number] PCP - General 07/07/09
[2025-04-28 10:34] LABS: EDSTREPNEGPOS1 Negative (Negative)
--- NOTE | 2025-04-28 10:35 | ED.URI ---
HPI - URI/Sore Throat General Chief Complaint: Upper Respiratory Infection Stated Complaint: throat History of Present Illness HPI Narrative: patient is a 25-year-old male, without significant past medical history, presents to [facility] with 2 day history of sore throat symptoms, worse this morning with a sensation of throat swelling. He reports he is swelling his secretions without incident. He believes he may have had a fever last night but did not check to confirm. He denies associated nasal congestion, cough or known sick contacts. He has not traveled. He denies any additional associated symptoms modifying factors. Related Data Allergies Allergy/AdvReac Type Severity Reaction Status Date / Time Sulfa (Sulfonamide Allergy Intermediate Hives Verified 04/28/25 09:53 Antibiotics) Review of Systems Constitutional: Constitutional: Reports as per HPI ENT: Reports as per HPI Exam Const: General: healthy appearing and no acute distress Nutritional Appearance: well nourished and obese Orientation/consciousness: patient oriented x3 Limitations: no limitations HENMT: Head: normal to inspection Ears: external ears normal, TM's normal bilaterally and EAC's normal Face/Nose/Sinus: Normal external nose present and Normal nares present Face and sinus: normal facial exam and sinuses nontender Mouth: Yes Normal oral and palatal mucosa present and Yes lip normal Teeth and gingiva: dentition normal Other: Patient has pharyngeal swelling, tonsils are 3+ bilaterally and erythematous without exudate, uvula midline, patient does have palatal petechiae present. No trismus Eyes: Conjunctivae: conjunctivae normal Pupils: Equal, round and reactive pupils present EOM: EOMs intact bilaterally Direct Ophthalmoscopy: no photophobia Neck: Neck: normal visual inspection Other: a few small anterior cervical nodes are palpable bilaterally and tender to palpation, no posterior chain lymphadenopathy, no meningeal signs Resp: Effort & Inspection: normal respiratory effort Auscultation: clear to auscultation bilaterally Cardio: Rate: regular rate Rhythm: regular rhythm Skin: General skin exam: normal color Rashes: no rashes Wounds: no wounds Neuro: General: patient oriented x3, moves all extremities, no meningeal signs, no focal motor deficits and CN's II-XI intact bilaterally Extrem: General: normal to inspection Course Course Emergency Course: rapid strep is negative, will reflux or culture. Plan to treat empirically for strep pharyngitis based on Centor score and pharyngeal exam. Patient is encouraged to push fluids and rest, to take Tylenol ibuprofen as directed [id number] for discomfort fevers, he is encouraged to replace his toothbrush in 24 hours after antibiotics are initiated, Cepacol lozenges for sore throat discomfort. PCP follow-up in 3 days if symptoms are not resolving. Patient is agreeable plan Level of Care: Express Care Visit ([id number]) Vital Signs Vital signs: Vital Signs Temperature 36.9 C 04/28/25 09:40 Pulse Rate 101 H 04/28/25 09:40 Respiratory Rate 20 04/28/25 09:40 Blood Pressure 126/73 04/28/25 09:40 Pulse Oximetry 97 04/28/25 09:40 Oxygen Delivery Room Air 04/28/25 09:40 Temperature 36.9 C 04/28/25 09:40 Pulse Rate 101 H 04/28/25 09:40 Respiratory Rate 20 04/28/25 09:40 Blood Pressure 126/73 04/28/25 09:40 Pulse Oximetry 97 04/28/25 09:40 Oxygen Delivery Room Air 04/28/25 09:40 MDM - URI/Sore Throat MDM Narrative Medical decision making narrative: rapid strep negative, will reflex culture, cephalexin b.i.d. for 10 days Differential Diagnosis Differential diagnosis: Likely upper respiratory infection, sinusitis, viral infection, pharyngitis and other ( strep) Lab Data Lab results narrative: negative rapid strep Labs: Lab Results 04/28/25 Range/Units 10:30 POC Grp A Strep Screen Negative (Negative) Discharge Plan Discharge Clinical Impression: Pharyngitis Qualifiers: Pharyngitis/tonsillitis etiology: unspecified etiology Qualified Code(s): J02.9 - Acute pharyngitis, unspecified Patient Disposition: Home Condition: Stable Instructions: Antibiotic Form, Pharyngitis (ED) Additional Instructions: START AND COMPLETE ORAL ANTIBIOTICS PRESCRIBED, YOU MAY CONTINUE TYLENOL AND OR IBUPROFEN DIRECTED [id number] FOR DISCOMFORT OR FEVERS, PUSH FLUIDS, CEPACOL LOZENGES MAY PROVIDE ADDITIONAL SORE THROAT SYMPTOM RELIEF. REPLACE YOUR TOOTHBRUSH AFTER HE HAS COMPLETED 24 HOURS OF ANTIBIOTICS. FOLLOW-UP WITH YOUR PRIMARY DOCTOR IF YOUR SYMPTOMS ARE NOT RESOLVING IN 2-3 DAYS. Patient Language: Bahamian Prescriptions: New cephalexin 500 mg capsule 500 mg PO Q12H Qty: 20 0RF Follow-up/Referrals: PHYSICIAN,DIRECTOR NURSING SERVICE [Primary Care Provider, Internal Medicine] Time of Disposition: 10:41
== END 2025-04-28 10:45 | disposition home or self-care (01) ==
PROVIDERS: Emergency Provider Nurse Practitioner Family
DX: J02.9 Acute pharyngitis, unspecified (principal)
CPT/HCPCS: 87081; 87880; 99213; G0463